=== PATIENT | female | born 1965 | race Caucasian/White ===

== ENCOUNTER → 2024-11-11 | Outpatient (REF) | payer BC ==
[~2024-11-11] MED LIST: IOPAMIDOL 370 MG/ML 100 ML INFUS..BTL INJ ONE; METOPROLOL TARTRATE INJ 1 MG/ML VIAL ONE; NITROGLYCERIN 0.4 MG SUBL ONE; SODIUM CHLORIDE 0.9% 0 ML ONE
[2024-11-11 10:11] LABS: EST GLOMERULAR FILTRATION RATE 99.0 ML/MIN (>=60)
== END ==
LOC: CT 08:04
PROVIDERS: ATTEND Internal Medicine Cardiovascular Disease
DX: R07.2 Precordial pain (principal)
CPT/HCPCS: 36415; 75574; 82565; 84520; Q9967; J7050